=== PATIENT | male | born 1950 | race Caucasian/White ===

== ENCOUNTER 2022-04-12 21:33 | Emergency (ER) | payer SELFPAY ==
[2022-04-12 21:47] VITALS: BP 130/86; PULSE 76; RESP 18; TEMP 97.9; BMI 25.8
== END 2022-04-12 23:25 | disposition left against medical advice (07) ==
LOC: JER 21:33
DX: F10.929 Alcohol use, unspecified with intoxication, unspecified (principal)
CPT/HCPCS: 72125-TC; 99283-25